=== PATIENT | male | born 1970 | race Caucasian/White ===

== ENCOUNTER → 2022-06-10 11:16 | Outpatient (BNVA) | payer OTHER, SELFPAY | PROVIDERS: PCP Internal Medicine; Visit Provider Internal Medicine Rheumatology | DX: M25.512 Pain in left shoulder (principal); M25.552 Pain in left hip; M54.50 Low back pain, unspecified; M25.572 Pain in left ankle and joints of left foot; M47.812 Spondylosis without myelopathy or radiculopathy, cervical region; M47.816 Spondylosis without myelopathy or radiculopathy, lumbar region | CPT/HCPCS: 99202 ==

== ENCOUNTER 2023-08-16 10:42 | Outpatient (REF) | payer OTHER, SELFPAY ==
[2023-08-16 10:58] LABS: MANUAL DIFF FLAG NO
[2023-08-16 11:14] LABS: Basophils Percent Auto 0.4 % (0-2); Eosinophils Absolute Auto 0.1 X10*3/uL (0.0-0.4); Eosinophils Percent Auto 0.7 % (0-4); Hematocrit 41.6 % (42.0-52.0); Hemoglobin 14.1 g/dl (14.0-18.0); Imm Gran Abs Auto 0.04 X10*3/uL (0.00-0.03); Imm Gran Pct Auto 0.4 % (0.0-0.4); Lymphocytes Absolute Auto 3.1 X10*3/uL (1.2-4.9); Lymphocytes Percent Auto 33.2 % (20-40); Mean Corpuscular HGB Conc 33.9 g/dl (31.0-36.0); Mean Corpuscular Hemoglobin 31.1 pg (27.0-33.0); Mean Corpuscular Volume 91.6 fL (80.0-98.0); Mean Platelet Volume 9.6 fL (9.4-12.4); Monocytes Absolute Auto 0.8 X10*3/uL (0.1-1.2); Monocytes Percent Auto 8.2 % (2-11); Neutrophils Absolute Auto 5.3 x10*3/uL (2.0-8.3); Neutrophils Percent Auto 57.1 % (45-73); Platelet Count 243 X10*3/uL (160-400); Red Blood Count 4.54 X10*6/uL (4.60-5.80); Red Cell Distribution Width 13.4 % (11.0-16.0); White Blood Count 9.2 X10*3/uL (4.8-10.8)
[2023-08-16 11:49] LABS: Alanine Aminotransferase 15 U/L (0-40); Albumin Level 4.2 g/dL (3.5-5.0); Alkaline Phosphatase 63 U/L (39-117); Anion Gap 11 (12-20); Aspartate Amino Transferase 16 U/L (5-37); Bilirubin Total 0.4 mg/dL (0.0-1.0); Blood Urea Nitrogen 14 mg/dL (9-16); C Reactive Protein 0.59 mg/dL (< or = 0.50); Calcium 9.1 mg/dL (8.4-10.2); Carbon Dioxide 26 mmol/L (22-29); Chloride 107 mmol/L (96-108); Estimated Glomerular Filt Rate > 60; Glucose Random 111 mg/dL (60-115); Potassium 3.8 mmol/L (3.3-5.1); Sodium 140 mmol/L (135-145); Total Protein 7.2 g/dL (6.5-8.0)
[2023-08-16 11:58] LABS: Erythrocyte Sedimentation Rate 5 MM/HR (0-15)
== END 2023-08-16 10:43 | disposition home or self-care (01) ==
LOC: HO.LAB 10:42
PROVIDERS: PCP Internal Medicine; Visit Provider Nurse Practitioner Family
DX: M47.816 Spondylosis without myelopathy or radiculopathy, lumbar region (principal); Z79.1 Long term (current) use of non-steroidal anti-inflammatories (NSAID)
CPT/HCPCS: 36415; 80053; 85025; 85652; 86140

== ENCOUNTER 2023-08-17 08:56 | Outpatient (AMB) | payer OTHER, SELFPAY ==
--- NOTE | 2023-08-17 09:00 | MHC.OFFVIS ---
Vital Signs 08/17/23 09:02 Height 5 ft 3 in Weight 160 lb BMI 28.3 BP 94/60 Blood Pressure Location Rt brachial Position Sitting Pulse 83 Pulse Source Pulse Oximeter Pulse Oximetry (%) 98 Oxygen Delivery Method Room Air Intake Visit Reasons: OA Intake Note: Patient last seen 06/10/[address] Ordonez, presents today for follow up and test results. Snack Stewardess Required: Yes Snack Stewardess Language: Blast Furnace Operator Name: Deja [id number] Information Interpreted: clinical only Accompanied by: Self / Same As Patient Allergies No Known Allergies Allergy (Unverified 08/17/23 09:01) HPI Comments Details: Mr. Dumont 53yoM her for follow-up of Osteroathritis of multiple joints. Hnormally takes Ibuprofen 800 mg PRN but has not received it recently at the pharmacy due to provider change. He says Ibuprofen is usually helpful with most of his joints. He is currently following with Ortho for left shoulder; has Appt August 23 to discuss further treatment options. He recently did an Xray of the left shoulder in June. 06/10/2022 Dr. Ordonez: The patient presents for evaluation of left shoulder, left hip, and lower back pains. Our medical support assistant Kaitlynn helps with the translation. He reports about 3 years of pain in the left buttock and lateral hip. This is sometimes accompanied by lower back pain. He does not recall any specific injury but does work in a factory doing fairly physical labor. He was taking some ibuprofen 800 mg once a day or so that was helpful but he ran out of it. Now he takes [id number]-[id number] ibuprofen 200 mg. He has been receiving physical therapy for the back but does not think he has been improving. About a year and half ago the left shoulder became painful. This is pain over the top of the shoulder that radiates distally into the deltoid. It is worse with lying on the shoulder at night. He does not recall any particular injury to the shoulder. He claims to have received some instruction on physical therapy exercises for the shoulder but they have not been all that helpful. There is no swelling of the shoulder. He does not recall any discrete injury to that area. About 3 years ago he fell and twisted his left ankle. It still is painful at times. [facility] Medical History (Updated 08/17/23 @ 09:16 by Elena Laura, ASSISTANT FINANCE MANAGER-BC) termite treater current use of non-steroidal anti-inflammatories (NSAID) PPD positive Fatigue Chronic back pain Social History Household Members: Spouse Alcohol intake: current Patient Tobacco Use Status: Current everyday Tobacco user Cigarette Packs Per Day: 10 Substance Use Type: Marijuana Current occupational status: employed Current occupation: assembly Review of Systems Const All systems reviewed & are unremarkable except as noted in HPI and below Physical Exam Vital Signs: Last Vital Signs Pulse 83 08/17/23 09:02 BP 94/60 08/17/23 09:02 Pulse Ox 98 08/17/23 09:02 Oxygen Delivery Method Room Air 08/17/23 09:02 BMI result Body Mass Index 28.3 APPEARANCE: Patient in no acute distress EYES no redness, pupils equal and reactive to light, eyelids normal EARS: External ear normal, canal clear and tympanic membrane normal. NOSE/SINUS: Airflow through both nares, no nasal discharge, no bleeding THROAT: Oral mucosa moist, no ulcerations NECK: No thyromegaly or masses, no adenopathy, trachea midline. HEART: Regulrar rhythm, S1-S2 heard, no murmurs, rubs or gallops. LUNG: Clear to percussion and auscultation ABD: Normal bowel sounds, no organomegaly, masses or tenderness. EXTREMITIES: No edema, no calf tenderness, normal peripheral pulses. NEURO: Oriented and alert x3. No focal weakness. Reflexes symmetric. Gait normal. SKIN: Some dryness of the skin in the posterior cervical region. No obvious inflammatory or neoplastic lesions. No objective signs of Raynaud's disease. JOINT EXAM:.?? Cervical Spine:.? Full range of motion with mild discomfort at the extremes. No tenderness. Thoracic Spine:.? No scoliosis.? No tenderness on palpation. Lumbar Spine:.? Alignment normal.? Full range of motion without pain, no tenderness. Chest Wall:.? No tenderness, swelling, increased warmth or erythema. Hands: Right: Mild to moderate bony enlargement and slight tenderness at the base of the thumb. There is a flexion deformity at the right 5th PIP with some minimal bony enlargement. He notes that the flexion deformity developed after he injured a tendon in the palm of the hand many years ago. He has no pain in this region. No tenderness. No thenar atrophy or sensory loss. Left: Minimal bony enlargement without tenderness at the base of the thumb. Other joints have? Normal pain-free range of motion without tenderness, swelling, increased warmth or erythema. There is no sensory loss or thenar atrophy. Wrists: Right: Mild discomfort with flexion extension at 80 degrees with some dorsal tenderness but no swelling. Left:? Normal pain-free range of motion without tenderness, swelling, increased warmth or erythema. Elbows: Normal pain-free range of motion without tenderness, swelling, increased warmth or erythema. Shoulders: Left: Mild pain with abduction at 75 degrees abduction is limited about 110 degrees. There is mild anterior and subacromial tenderness without adenopathy. There is no swelling or abductor weakness. Right:? Full range of motion without pain. No tenderness, weakness, swelling, increased warmth or erythema. Hips: Left: Mild buttock and lumbar pain with extremes of internal external rotation. No groin pain with motion. No inguinal tenderness or mass. Right:? Full range of motion without pain. Hip bursa:.? Mild left trochanteric tenderness. Knees:.?? Normal pain-free range of motion with mild patellofemoral crepitus but no effusion, tenderness, swelling, increased warmth or erythema.? Ankles: Left: Slight pain with extremes of inversion and eversion with some minimal lateral tenderness but no swelling. No redness or warmth. Right:? Normal pain-free range of motion without tenderness, swelling, increased warmth or erythema. Feet:? Normal pain-free range of motion without tenderness, swelling, increased warmth or erythema. Tender points:.? No tenderness to digital palpation at the occiput, trapezius, second rib, lateral epicondyle, knees, greater trochanter and gluteal area bilaterally. ? Results Reviewed Results Reviewed: Laboratory Tests 08/16/23 10:56 WBC 9.2 RBC 4.54 L Hgb 14.1 Hct 41.6 L ESR 5 Creatinine 0.80 AST 16 ALT 15 C-Reactive Protein 0.59 H Assessment & Plan Assessment & Plan (1) Shoulder pain, left: Code(s): M25.512 - Pain in left shoulder Category: Medical Qualifiers: Chronicity: chronic Qualified Code(s): M25.512 - Pain in left shoulder; G89.29 - Other chronic pain (2) Low back pain: Code(s): M54.50 - Low back pain, unspecified Category: Medical Qualifiers: Chronicity: chronic Back pain laterality: bilateral Sciatica presence: without sciatica Qualified Code(s): M54.50 - Low back pain, unspecified; G89.29 - Other chronic pain (3) Cervical osteoarthritis: Code(s): M47.812 - Spondylosis without myelopathy or radiculopathy, cervical region Category: Medical Qualifiers: Spinal osteoarthritis complication: unspecified spinal osteoarthritis Qualified Code(s): M47.812 - Spondylosis without myelopathy or radiculopathy, cervical region (4) Osteoarthritis of lumbar spine: Code(s): M47.816 - Spondylosis without myelopathy or radiculopathy, lumbar region Category: Medical Qualifiers: Spinal osteoarthritis complication: unspecified spinal osteoarthritis Qualified Code(s): M47.816 - Spondylosis without myelopathy or radiculopathy, lumbar region (5) [facility] current use of non-steroidal anti-inflammatories (NSAID): Code(s): Z79.1 - [facility] (current) use of non-steroidal anti-inflammatories (NSAID) Category: Medical Plan #OA Multiple joints and Left Shoulder Tendinitis: The left shoulder has some impingement features consistent with a rotator cuff tendinitis. He has documented cervical and lumbar osteoarthritis. The lumbar OA is likely referring pain to the left buttock and hip region. He has some mild osteoarthritis in the hands particularly at the base of the thumbs. We might consider a corticosteroid injection in the left subacromial space for rotator cuff tendinitis but will defer to ortho since he is currently following with them. He seems to tolerate the 800 mg ibuprofen and found it helpful so I will refill. That could be continued by his primary care team if needed. I have ordered labs to be done 1 week before next visit Today the review of his Char record, history taking, and exam took 30 minutes. F/u 1 year Orders: Orders Complete Blood Count Auto Diff 6 Months G89.29 - Other chronic pain, M25.512 - Pain in left shoulder, M25.552 - Pain in left hip, M54.50 - Low back pain, unspecified, Z79.1 - [facility] (current) use of non-steroidal anti-inflammatories (NSAID) Comprehensive Met. Panel 6 Months G89.29 - Other chronic pain, M25.512 - Pain in left shoulder, M25.552 - Pain in left hip, M54.50 - Low back pain, unspecified, Z79.1 - termite treater (current) use of non-steroidal anti-inflammatories (NSAID) C Reactive Protein 6 Months G89.29 - Other chronic pain, M25.512 - Pain in left shoulder, M25.552 - Pain in left hip, M54.50 - Low back pain, unspecified, Z79.1 - [facility] (current) use of non-steroidal anti-inflammatories (NSAID) Uric Acid Today G89.29 - Other chronic pain, M25.512 - Pain in left shoulder, M25.552 - Pain in left hip, M54.50 - Low back pain, unspecified, Z79.1 - [facility] (current) use of non-steroidal anti-inflammatories (NSAID) Immunoglobulins,IgG IgA IgM Today G89. - Other chronic pain, M25.512 - Pain in left shoulder, M25.552 - Pain in left hip, M54.50 - Low back pain, unspecified, Z79.1 - [facility] (current) use of non-steroidal anti-inflammatories (NSAID) Protein Electrophoresis, Serum Today G89. - Other chronic pain, M25.512 - Pain in left shoulder, M25.552 - Pain in left hip, M54.50 - Low back pain, unspecified, Z79.1 - termite treater (current) use of non-steroidal anti-inflammatories (NSAID) Erythrocyte Sedimentation Rate 6 Months G89.29 - Other chronic pain, M25.512 - Pain in left shoulder, M25.552 - Pain in left hip, M54.50 - Low back pain, unspecified, Z79.1 - termite treater (current) use of non-steroidal anti-inflammatories (NSAID) Creatine Kinase Total Today G89.29 - Other chronic pain, M25.512 - Pain in left shoulder, M25.552 - Pain in left hip, M54.50 - Low back pain, unspecified, Z79.1 - [facility] (current) use of non-steroidal anti-inflammatories (NSAID) Immunofixation Pnl, Serum Today G89. - Other chronic pain, M25.512 - Pain in left shoulder, M25.552 - Pain in left hip, M54.50 - Low back pain, unspecified, Z79.1 - termite treater (current) use of non-steroidal anti-inflammatories (NSAID) Medications: Refilled ibuprofen 800 mg PO Q8H PRN 100 tabs 4RF pain M25.512 - Pain in left shoulder
[2023-08-17 09:02] VITALS: BP 94/60; PULSE 83; O2SAT 98; BMI 28.3
== END 2023-08-17 09:26 | disposition home or self-care (01) ==
LOC: HO.RHE 08:56
PROVIDERS: PCP Internal Medicine; Visit Provider Nurse Practitioner Family
DX: M25.512 Pain in left shoulder (principal); G89.29 Other chronic pain; M54.50 Low back pain, unspecified; M47.812 Spondylosis without myelopathy or radiculopathy, cervical region; M47.816 Spondylosis without myelopathy or radiculopathy, lumbar region; Z79.1 Long term (current) use of non-steroidal anti-inflammatories (NSAID)
CPT/HCPCS: 99213

== ENCOUNTER → 2023-08-17 08:56 | Outpatient (BNVA) | payer OTHER, SELFPAY | PROVIDERS: PCP Internal Medicine; Visit Provider Nurse Practitioner Family | DX: M25.512 Pain in left shoulder (principal); M54.50 Low back pain, unspecified; M47.812 Spondylosis without myelopathy or radiculopathy, cervical region; M47.816 Spondylosis without myelopathy or radiculopathy, lumbar region; G89.29 Other chronic pain; Z79.1 Long term (current) use of non-steroidal anti-inflammatories (NSAID) | CPT/HCPCS: 99212 ==

== ENCOUNTER 2024-08-16 09:13 | Outpatient (AMB) | payer OTHER, SELFPAY ==
--- NOTE | 2024-08-16 09:14 | MHC.OFFVIS ---
Vital Signs 08/16/24 09:19 Height 5 ft 3 in Weight 149 lb 14.629 oz BMI 26.6 BP 115/62 Blood Pressure Location Lt brachial Position Sitting Pulse 85 Pulse Source Pulse Oximeter Pulse Oximetry (%) 97 Oxygen Delivery Method Room Air Intake Visit Reasons: OA multiple joints/labs Intake Note: Patient presents for OA multiple joints/labs follow up. Animal Laboratory Technician Required: Yes Animal Laboratory Technician Language: Manager Internal Services: Animal Laboratory Technician Present Animal Laboratory Technician Name: Souleymane Moreno Information Interpreted: non-clinical & clinical Allergies No Known Allergies Allergy (Verified 08/16/24 09:18) Medication List - Last Reconciled 08/16/24 by Hue Patrick MD ibuprofen 800 mg PO Q8H PRN HPI Comments Details: Patient is a 54-year-old male with polyarticular osteoarthritis here today for follow up Interval History: Patient last seen 08/17/2023 with Elena Sanchez. At that time he was following up for his polyarticular osteoarthritis. Takes ibuprofen 800 mg p.r.n. which is helpful. Unfortunately currently does not have insurance and currently takes over the counter ibuprofen Continues to complain of polyarticular joint pain. In particular the left shoulder. Rheumatologic History: Initial history from Dr. Ordonez 05/2022: The patient presents for evaluation of left shoulder, left hip, and lower back pains. Our medical illustrator Kaitlynn helps with the translation. He reports about 3 years of pain in the left buttock and lateral hip. This is sometimes accompanied by lower back pain. He does not recall any specific injury but does work in a factory doing fairly physical labor. He was taking some ibuprofen 800 mg once a day or so that was helpful but he ran out of it. Now he takes [id number]-[id number] ibuprofen 200 mg. He has been receiving physical therapy for the back but does not think he has been improving. About a year and half ago the left shoulder became painful. This is pain over the top of the shoulder that radiates distally into the deltoid. It is worse with lying on the shoulder at night. He does not recall any particular injury to the shoulder. He claims to have received some instruction on physical therapy exercises for the shoulder but they have not been all that helpful. There is no swelling of the shoulder. He does not recall any discrete injury to that area. About 3 years ago he fell and twisted his left ankle. It still is painful at times. 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 non-steroidal anti-inflammatories (NSAID) PPD positive Fatigue Chronic back pain Social History Household Members: Spouse Alcohol intake: current Patient Tobacco Use Status: Current everyday Tobacco user Cigarette Packs Per Day: 10 Substance Use Type: Marijuana Current occupational status: employed Current occupation: assembly Review of Systems Const Details: Review of Systems Constitutional: Denies fever, chills, weight loss ENT: Denies vision changes, eye pain or eye redness, dental caries, dry mouth GI: Denies nausea, vomiting, diarrhea, abdominal pain, change in BM Pulm: Denies SOB, DHALIWAL, hemoptysis, wheezing Cards: Denies chest pain, palpitations Skin: Denies Raynaud's, rash, nail changes, photosensitivity, EPIC RADIANT ANALYST: Denies headaches, weakness, paresthesias, recurrent falls MSK: as per HPI All other systems reviewed and are unremarkable except noted above Physical Exam Vital Signs: Last Vital Signs Pulse 85 08/16/24 09:19 BP 115/62 08/16/24 09:19 Pulse Ox 97 08/16/24 09:19 Oxygen Delivery Method Room Air 08/16/24 09:19 BMI result Body Mass Index 26.6 Vital signs reviewed Physical Examination CONSTITUITIONAL Patient alert and cooperative. Well appearing and in no apparent painful distress HEENT Conjunctiva and sclera clear. ?Pupils equal round and reactive to light. ?No lymphadenopathy. ? CHEST/RESPIRATORY SYSTEM Normal respiratory effort and able to speak in complete sentences. ?Clear to auscultation bilaterally. ?No crackles, rales, rhonchi, wheezes heard. CARDIAC SYSTEM Regular rate and rhythm. ?S1 and S2 heard no murmurs. ?Radial pulses intact bilaterally MSK Hands: ?Able to make a fist. No synovitis noted to the MCPs, PIPs or DIPs. ?No tenderness to palpation of these joints. Herbeden's nodes Wrists: ?Full range of motion at the wrists without pain. ?No tenderness to palpation or synovitis noted to the wrists. Elbows: Full range of motion without pain. No tenderness, weakness, swelling, increased warmth or erythema. Shoulders: Full range of active range of motion bilaterally. Pain with active range of motion of the left shoulder with positive Feliz Jean Claude maneuver up Knees: ?Full range of motion. ?No tenderness, swelling, increased warmth or erythema.?No effusion or crepitations Ankles: Full range of motion. ?No tenderness, swelling, increased warmth or erythema.? Feet: ?Negative squeeze test. ?No tenderness to palpation or swelling of the MTPs. Tender points:?No tenderness to palpation of the bilateral trapezius, supraspinatus, greater trochanters, anterior costochondral junctions, bilateral gluteal areas, bilateral suboccipital muscle insertions SKIN Skin intact without rashes. Results Reviewed Results Reviewed: Laboratory Tests 08/16/23 10:56 WBC 9.2 RBC 4.54 L Hgb 14.1 Hct 41.6 L Plt Count 243 ESR 5 Sodium 140 Potassium 3.8 Chloride 107 Carbon Dioxide 26 BUN 14 Creatinine 0.80 AST 16 ALT 15 Alkaline Phosphatase 63 C-Reactive Protein 0.59 H Assessment & Plan Assessment & Plan (1) Polyarticular osteoarthritis: Code(s): M15.9 - Polyosteoarthritis, unspecified Category: Medical Plan: #Polyarticular OA Patient is a 54-year-old male with polyarticular osteoarthritis here today for follow up. Currently managing his osteoarthritis with p.r.n. ibuprofen. Was without insurance for a while and so was taking lwer-rjf-eaejyrh ibuprofen but is requesting 800 mg ibuprofen today. Offered left shoulder injection but patient said he would like to think about it. 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): Code(s): Z79.1 - petroleum terminal plant operator (current) use of non-steroidal anti-inflammatories (NSAID) Category: Medical Plan: #Long-term Use of NSAIDs Discussed with patient the benefits and risk of NSAIDs for managing the rheumatic condition Benefits include: - Reduced the pain, improved mobility, and increased participation in activities Risks include: - GI upset, potential also worsening or formation (especially in patients > 65 years old) Recommended using proton pump inhibitors (PPIs) for the duration of NSAID use to reduce the risk of gastric ulcers Plan I spent 22 minutes reviewing the record and labs, taking a history, examining the patient, discussing the treatment plan, ordering diagnostic work up and documenting in the medical record Orders: Orders Complete Blood Count Auto Diff Today M15.9 - Polyosteoarthritis, unspecified, Z79.1 - retirement (current) use of non-steroidal anti-inflammatories (NSAID) Comprehensive Met. Panel Today M15.9 - Polyosteoarthritis, unspecified, Z79.1 - retirement (current) use of non-steroidal anti-inflammatories (NSAID) Medications: Changed From ibuprofen 800 mg PO Q8H PRN 100 tabs 4RF pain M25.512 - Pain in left shoulder To ibuprofen 800 mg PO Q8H 90 days PRN 270 tabs 2RF pain M25.512 - Pain in left shoulder Coding Level of Care Code Est Pt Level 3 (22289) Diagnoses Polyarticular osteoarthritis M15.9 retirement current use of non-steroidal anti-inflammatories (NSAID) Z79.1
[2024-08-16 09:19] VITALS: BP 115/62; PULSE 85; O2SAT 97; BMI 26.6
--- OUTSIDE RECORDS SUMMARY | 2024-08-16 10:04 | XMS_ITS ---
Author Organization [facility] Address [address], [place] [id number] Care Team Providers Care Sales Agent Casualty Insurance Name Role Phone No, PCP Primary Care Provider Jessie Dove Unavailable [phone] REASON FOR VISIT Call [employer] to update no Income Social History Sex Assigned At : Social History Observation Description Sex Assigned At Male Encounters Encounter Location Date Provider Diagnosis [facility] [address] [place] [id number] 07/20/2024 Jessie Peñaloza Plan Of Treatment No Information Progress Notes * Spencer QUANOB:[birth year] (54 yo M)Acc No.[id number]:07/20/2024 Case Management Patient:?Joel QUAN Provider:Amrik Peñaloza :1970???Age:54 Y???Sex:Male Sudhir e:07/20/2024 Address:[address] [place] [id number] Pcp:PCP No Subjective: * Chief Complaints: * ???1. Call Certify to up date no Income. * HPI: ???Social Service:?Action Taken?[employer]? Called [employer] with client and updated MH that client no longer has any Income at this moment. Client was approved for [employer]. 3. gd2.? * Medical History:? Objective: * Vitals:? Assessment: Plan: * Treatment: * Images: Billing Information: * Visit Code:? * Procedure Codes:? Care Plan Details* * Sign off status: Completed true * Provider:Amrik Peñaloza Date:?07/20/2024 Generated for Karen adame/Brian/Humberto on:?08/16/2024 10:04 AM EDT History and Physical Notes * HPI (History of Present Illness) Category Sub-Category Detail Notes Social Service Action Taken [facility] : Called [facility] with client and updated MH that client no longer has any Income at this moment. Client was approved for [facility]. 3. gd2
--- OUTSIDE RECORDS SUMMARY | 2024-08-16 10:04 | XMS_ITS | Clinical Summary ---
Author Organization [facility] it Address [address] [place] [address] Care Team Providers Care Nailhead Operator Name Role Phone Shira Moralez MD Primary Care Provider [phone] Immunizations Name Administration Dates Next Due Moderna SARS-CoV-2 COVID-19, mRNA, LNP-S, preservative free 11/18/2021,04/23/2021 Surgical History Surgery Date Site/Laterality Comments OTHER SURGICAL HISTORY PROCEDURE: DENIES PREVIOUS SURGERY Family History Medical History Relation Name Comments Lung cancer Father Hypertension Mother Relation Name Status Comments Brother Alive 9,healthy Father cancer lungs Mother Alive Sister Alive 3,not sure Social History Tobacco Use Types Packs/Day Years Used Date Smoking Tobacco: Every Day Cigarettes Smokeless Tobacco: Never Alcohol Use Standard Drinks/Week Comments Yes 0 (1 standard drink = 0.6 oz pur e alcohol) Sex and Gender Information Value Date Recorded Sex Assigned at Not on file Legal Sex Male 1:02 PM EST Gender Identity Not on file Sexual Orientation Not on file Obstetrics History Last Filed Vital Signs Vital Sign Reading Time Taken Comments Blood Pressure 125/65 08/01/2021 10:01 AM EDT au to Pulse 77 08/01/2021 10:01 AM EDT Temperature - - Respiratory Rate - - Oxygen Saturation - - Inhaled Oxygen Concentration - - Weight 71.7 kg (158 lb) 07/06/2023 8:49 AM EDT Height 160 cm (5' 3 ) 07/06/2023 8:49 AM EDT Body Mass Index 27.99 07/06/2023 8:49 AM EDT Plan of Treatment Health Maintenance Due Date Last Done Comments Hepatitis B Vaccines (1 of 3 - 19+ 3-dose series) 1989 Pneumococcal Vaccine: 50+ Years (1 of 2 - PCV) 1989 Pneumococcal Vaccine: Pediatrics (0 to 5 Years) and At-Risk Patients (6 to 64 Years) (1 of 2 - PCV) 1989 Zoster Vaccines (1 of 2) 2020 02/11/2007 Cholesterol Screening (Lipid Panel) 04/05/2022 Colorectal Cancer Screening: Colonoscopy 04/05/2022 Depression Screening 04/05/2022 HIV Screening 04/05/2022 Hepatitis C Screening 04/05/2022 Social Influencers of Health Screening 04/05/2022 COVID-19 Vaccine ( season) 2023 11/18/2021, 04/23/2021, 07/09/2020, Additional history exists Influenza Vaccine (Season Ended) 2024 02/15/2017 DTaP,Tdap,and Td Vaccines (2 - Td or Tdap) 02/15/2027 02/15/2017 MMR Vaccines Aged Out 02/11/2006 No longer eligi ble based on patient's age to complete this topic Varicella Vaccines Aged Out 02/11/2007 No longer eligible based on patient's age to complete this topic HIB Vaccines Aged Out No longer eligi ble based on patient's age to complete this topic HPV Vaccines Aged Out No longer eligi ble based on patient's age to complete this topic Hepatitis A Vaccines Aged Out No long er eligible based on patient's age to complete this topic IPV Vaccines Aged Out No longer eligi ble based on patient's age to complete this topic Meningococcal ACWY Vaccine Aged Out N o longer eligible based on patient's age to complete this topic Meningococcal B Vaccine Aged Out No l onger eligible based on patient's age to complete this topic RSV Immunization Patients Under 20 months Aged Out No longer eligible based on patient's age to complete this topic Care Teams Nailhead Operator Relationship Specialty Start Date End Date Shira Moralez MD [address] [place] [address] [place] [address] PCP - General 07/21/21
--- OUTSIDE RECORDS SUMMARY | 2024-08-16 10:04 | XMS_ITS | Clinical Summary ---
Author Organization [facility] Address [address] [place] [address] Care Team Providers Care Acreage Reporter Name Role Phone Ros Bennett Primary Care Provider [phone] Source Comments PLEASE NOTE, if this patient is a minor, it may be UNLAWFUL to discuss sensitive information that is contained in these records (such as FAMILY PLANNING, MENTAL HEALTH or SUBSTANCE ABUSE) with the minor patient's parent or other person without the patient's specific authorization.[facility] Allergies No known active allergies Medications varenicline (CHANTIX) 0.5 mg tabletIndications :Encounter for tobacco use cessation counseling Take 1 Tablet by mouth once daily for 3 days, THEN 1 Tablet 2 (two) times daily for 3 days, THEN 2 Tablets 2 (two) times daily for 84 days. Days 1 to 3: 0.5 mg once daily. Days 4 to 7: 0.5 mg twice daily. Maintenance (day 8 and later): 1 mg twice daily; Duration: Continue maintenance dose for at least 11 weeks (for a total of at least 12 weeks of treatment).. 345 Tablet 2 Active clotrimazole (LOTRIMIN) 1 % creamIndications: Tinea pedis of both feet Apply topically 2 (two) times daily 15 g 2 2 Active nicotine, polacrilex, (NICORETTE) 4 mg gumIndications:En counter for tobacco use cessation counseling Take 1 Each by mouth as needed for smoking cessation Nicotine gum Chew at least one piece of gum every one to two hours while awake and also whenever there is an urge to smoke. May use up to 24 pieces of gum per day for the first six weeks of treatment. Proper chewing of gum is important for optimal results. Chew and park is recommended: chew the gum until the nicotine taste appears, then park the gum against the buccal mucosa until the taste disappears, then chew a few more times to release more nicotine. Repeat this for 30 minutes, then discard the gum (because all nicotine in the gum has been released) 110 Each 1 2 Active ibuprofen 600 mg tabletIndications :Chronic apical periodontitis Take 1 Tablet by mouth 4 (four) times daily as needed for mild pain 20 Tablet 2 Active Active Problems Problem Noted Date Diagnosed Date Neuropathy 11/18/2021 Onychomycosis 11/18/2021 Low back pain radiating to left lower extremity 08/18/2021 Cervical pain (neck) 08/18/2021 Pain in left arm 08/18/2021 At risk for sexually transmi tted disease due to unprotected sex 08/18/2021 Absence of bladder continence 08/18/2021 Inability to maintain erection 08/18/2021 Dependence on nicotine from cigarettes 2 Immunizations Immunization Administration Dates Next Due Flu, Preservative Free 02/15/2023 MMR (MMR II/Priorix) 02/11/2006 Moderna COVID-19 Vaccine, re d cap blue label, 12+ Primary Series 11/18/2021,04/23/2021 PNEUMOCOCCAL CONJUGATE PCV 13 11/18/2021 PNEUMOCOCCAL CONJUGATE PCV 20 (Prevnar) 02/16/20 23 TDAP 02/15/2017 Varicella, Live Vaccine 02/11/2007 ZOSTER VACCINE, RECOMBINANT (SHINGRIX) 3 Social History Tobacco Use Types Packs/Day Years Used Date Smoking Tobacco: Every Day Cigarettes 0.5 30 Smokeless Tobacco: Never Tobacco Cessation:Counseling Given: Yes Comments:10 cigs a day Alcohol Use Standard Drinks/Week Comments Yes 15 (1 standard drink = 0.6 oz pu re alcohol) every 8 days Social Connections Answer Date Recorded Connectedness 0 02/15/2023 Financial Resource Strain Answer Date R ecorded Financial Resource Strain 0 2022 Stress Answer Date Recorded Stress 0 02/15/2023 Physical Activity Answer Date Recorded Physical Activity 0 04/23/2021 Food Insecurity Answer Date Recorded Food 0 02/15/2023 Transportation Needs Answer Date Record ed Transportation 0 02/15/2023 Housing Stability Answer Date Recorded Housing 0 02/15/2023 Safety and Environment Answer Date Rey rded Safety 0 02/15/2023 Utilities Answer Date Recorded Utilities 0 02/15/2023 Employment Answer Date Recorded Employment 0 04/23/2021 Sex and Gender Information Value Date Recorded Sex Assigned at Male 08/18/2021 11:59 AM PDT Legal Sex Male 11:36 AM PDT Gender Identity Male 08/18/2021 11:59 AM PDT Sexual Orientation Straight 08/18/2021 11 :59 AM PDT Last Filed Vital Signs Vital Sign Reading Time Taken Comments Blood Pressure 137/89 05/13/2023 9:49 AM EST Pulse 79 05/13/2023 9:49 AM EST Temperature 36.9 ??C (98.4 ??F) 02/15/2023 9:36 AM ED T Respiratory Rate 17 02/15/2023 9:36 AM EDT Oxygen Saturation 92% 02/15/2023 9:36 AM EDT Inhaled Oxygen Concentration - - Weight 71.2 kg (157 lb) 02/15/2023 9:36 AM EDT Height 160 cm (5' 3 ) 02/15/2023 9:36 AM EDT Body Mass Index 27.81 02/15/2023 9:36 AM EDT Plan of Treatment Health Maintenance Due Date Last Done Comments Anxiety Screening 1970 STI Counseling 1970 Imm-Hepatitis B (1 of 3 - 19 + 3-dose series) 1989 CT Colonography 2015 Colonoscopy 2015 Colorectal Cancer Screening 2015 FIT/gFOBT 2015 Fecal DNA 2015 Flexible Sigmoidoscopy 2015 Tobacco Screening 08/18/2022 08/18/2021 Imm-Zoster, Recombinant (2 of 2) 04/12/2023 02/16/20 23 [id number] ( season) 2023 11/18/2021, 04/23/2021, 07/09/2020, Additional history exists Imm-Influenza (#1) 2023 02/15/2023 Tobacco Cessation Counseling (#1) 02/15/202408/18/ 022 Annual Preventive Care Visit 02/16/2024 02/15/2023 Alcohol and Drug Screen 04/26/2024 02/16/20, 08/18/2021, 12/10/2015 Depression Annual Screen 04/26/2024 02/15/2023, 11/24 Hypertension Screening (#1) 05/12/2024 Dental BW 05/15/2024 05/13/2023, 09/25, 11/27/2021 Dental Examination 05/15/2024 05/13/2023, 10/16/2022 Dental Perio Charting 05/15/2024 05/13/2023, 023 Dental Prophy 05/15/2024 05/13/2023, 10/16/2022 Diabetes Screening 08/18/2024 08/18/2021, 08/18/2021 Lipid Screening 08/18/2026 08/18/2021 Dental FMX/Pano 12/28/2026 12/26/2021, 11/27/2021 Imm-DTaP/Tdap/Td (2 - Td or Tdap) 02/15/2027 017 HIV Screening Completed 08/18/2021 Hepatitis C Screening Completed 08/18/2021 Imm-Pneumococcal Completed 02/15/2023, 11/18/2021 Procedures Procedure Name Priority Date/Time Associated Diagnosis Comments COMP PERIODONTAL EVALUATION - NEW/EST PATIENT Routine 05/13/2023 9:40 AM EST Encounter for dental examination BITEWINGS - FOUR RADIOGRAPHIC IMAGES Routine 05/13/2023 9:40 AM EST Encounter for dental examination PROPHYLAXIS - ADULT Routine 05/13/2023 9 :40 AM EST Encounter for dental examination PERIODIC ORAL EVALUATION ESTABLISHED PATIENT Routine 05/13/2023 9:40 AM EST Encounter for dental examination PANORAMIC RADIOGRAPHIC IMAGE Routine 12/26/2021 11:00 AM EDT Chronic apical periodontitis HIV 1/2 AG & AB W/RFLX (4TH GEN) Routine 08/18/2021 3:55 PM EDT At risk for sexually transmitted disease due to unprotected sex ACUTE HEPATITIS PANEL W/RFLX Routine 08/18/2021 3:55 PM EDT At risk for sexually transmitted disease due to unprotected sex COMPREHENSIVE METABOLIC PANEL Routine 08/18/2021 3:55 PM EDT Encounter to establish care with new doctor LIPID PANEL Routine 08/18/2021 3:55 PM EDT Encounter to establish care with new doctor from Last 3 Months or Most Recently Relevant to Health Maintenance Results * HIV 1/2 AG & AB W/RFLX (4TH GEN) (08/18/2021 3:55 PM EDT) HIV AG/AB, 4TH GEN NON-REAC TIVE NON-REAC TIVE [facility] Comment: HIV-1 antigen and HIV-1/HIV-2 antibodies were not detected. There is no laboratory evidence of HIV infection. PLEASE NOTE: This information has been disclosed to you from records whose confidentiality may be protected by state law. ??If your state requires such protection, then the state law prohibits you from making any further disclosure of the information without the specific written consent of the person to whom it pertains, or as otherwise permitted by law. A general authorization for the release of medical or other information is NOT sufficient for this purpose. ?? For additional information please refer to http://education.FoxyP2/faq/PXM807 (This link is being provided for informational/ educational purposes only.) The performance of this assay has not been clinically validated in patients less than 2 years old. Blood Blood / Unknown 08/18/2021 3 :55 PM EDT 08/18/2021 3:56 PM EDT [facility] - BLOOD DRAW Final Resu lt [facility] [address] [address], [facility] [address] [address] * ACUTE HEPATITIS PANEL W/RFLX (08/18/2021 3:55 PM EDT) HEPATITIS A IGM ANTIBODY NON-REACT JOHNNA NON-REACT JOHNNA [facility] COMMENT [facility] HEPATITIS B SURFACE ANTIGEN NON-REACT JOHNNA NON-REACT JOHNNA [facility] HEPATITIS B CORE IGM ANTIBODY NON-REACT JOHNNA NON-REACT JOHNNA [facility] HEPATITIS C ANTIBODY NON-REACT JOHNNA NON-REACT JOHNNA [facility] SIGNAL TO CUT-OFF 0.03 <1.00 [facility] Comment: HCV antibody was non-reactive. There is no laboratory evidence of HCV infection. In most cases, no further action is required. However, if recent HCV exposure is suspected, a test for HCV RNA (test code 20702) is suggested. For additional information please refer to http://Mind[employer] Studio.FoxyP2/faq/WAP09s7 (This link is being provided for informational/ educational purposes only.) Blood Blood / Unknown 08/18/2021 3 :55 PM EDT 08/18/2021 3:56 PM EDT Narrative [facility] - 08/19/2021 5:38 PM EDT For additional information, please refer to http://Mind[employer] Studio.FoxyP2/faq/WQH384 (This link is being provided for informational/ educational purposes only.) [facility] - BLOOD DRAW Final Resu lt [facility] [address] [address], [facility] [address] [place] [address],[place] [address] * (ABNORMAL) LIPID PANEL (08/18/2021 3:55 PM EDT) CHOLESTEROL, TOTAL 159 <200 mg/dL [facility] HDL CHOLESTEROL 32(L) > OR = 40 mg/dL [facility] TRIGLYCERIDES 153(H) <150 mg/dL [facility] LDL-CHOLESTEROL 102(H) 99 mg/dL (calc) [facility] Comment: Reference range: <100 Desirable range <100 mg/dL for primary prevention; ?? <70 mg/dL for patients with CHD or diabetic patients with > or = 2 CHD risk factors. LDL-C is now calculated using the Ian calculation, which is a validated novel method providing better accuracy than the Friedewald equation in the estimation of LDL-C. Benito CHAMORRO et al. NATE. 2013;310(19): 0660-5700 (http://education.Ubooly.Vindi/faq/WAR011) CHOL/HDLC RATIO 5.0(H) <5.0 (calc) [facility] NON-HDL CHOLESTEROL 127 <130 mg/dL (calc) [facility] Comment: For patients with diabetes plus 1 major ASCVD risk factor, treating to a non-HDL-C goal of <100 mg/dL (LDL-C of <70 mg/dL) is considered a therapeutic option. Blood Blood / Unknown 08/18/2021 3 :55 PM EDT 08/18/2021 3:56 PM EDT [facility] - BLOOD DRAW Final Resu lt [facility] [address] [place] [address], [facility] [address] [place] [address],[place] [address] * COMPREHENSIVE METABOLIC PANEL (08/18/2021 3:55 PM EDT) GLUCOSE 85 65 - 99 mg/dL [facility] Comment: ?Fasting reference interval UREA NITROGEN (BUN) 23 7 - 25 mg/dL [facility] CREATININE (blood) 0.88 0.70 - 1.33 mg/dL [facility] Comment: For patients >49 years of age, the reference limit for Creatinine is approximately 13% higher for people identified as -[place]. GFR ESTIMATED 99 > OR = 60 mL/min/1 .73m2 [facility] EGFR 115 > OR = 60 mL/min/1 .73m2 [facility] BUN/CREATININE RATIO NOT APPLICABLE 6 - 22 [facility] SODIUM 138 135 - 146 mmol/L [facility] POTASSIUM 4.0 3.5 - 5.3 mmol/L [facility] CHLORIDE 105 98 - 110 mmol/L [facility] CARBON DIOXIDE 24 20 - 32 mmol/L [facility] CALCIUM 9.2 8.6 - 10.3 mg/dL [facility] PROTEIN, TOTAL 7.3 6.1 - 8.1 g/dL [facility] ALBUMIN 4.6 3.6 - 5.1 g/dL [facility] GLOBULIN 2.7 1.9 - 3.7 g/dL (calc) [facility] ALBUMIN/GLOBULIN RATIO 1.7 1.0 - 2.5 (calc) [facility] BILIRUBIN, TOTAL 0.3 0.2 - 1.2 mg/dL [facility] ALKALINE PHOSPHATASE 61 35 - 144 U/L [facility] AST 19 10 - 35 U/L [facility] ALT 16 9 - 46 U/L [facility] Blood Blood / Unknown 08/18/2021 3 :55 PM EDT 08/18/2021 3:56 PM EDT [facility] - BLOOD DRAW Edited Res ult - Final [facility] [address] [address], [facility] [address] [address] from Last 3 Months or Most Recently Relevant to Health Maintenance Insurance [facility] Member Subscriber Plan / Payer (Ef fective 2021-Present) Name:Joel Dumont Relation to Subscriber:Self Name:Joel Dumont Payer ID:[id number] Type:Indemnity Address: [address] [address] [place] MED[place]ID DENT[place] Care Teams Acreage Reporter Relationship Specialty Start Date End Date Ros Bennett PA [address] [place] [address] PCP - General Primary Care 09/03/23
--- OUTSIDE RECORDS SUMMARY | 2024-08-16 10:04 | XMS_ITS | Patient Health Record ---
Author Organization [facility] Address [address] [place], [place] [id number] Care Team Providers Care Rail Transportation Operator Name Role Phone No, PCP Primary Care Provider Jessie Dove Unavailable [phone] Reason For Referral No Information Social History Sex Assigned At : Social History Observation Description Sex Assigned At Male Encounters Encounter Location Date Provider Diagnosis [facility] [address] [place] [address] 07/20/2024 Jessie Peñaloza [facility] [address] [place] [address] 06/29/2024 Jessie Peñaloza Plan Of Treatment No Information Insurance Providers Payer Name Payer Address Payer Phone Subscriber Number Group Number Insured Name Patient Relationship to Insured Coverage Start Date Coverage End Date [place] Medicaid Standard [address] [place] [address] [id number] Joel Law Self - patient is the insured
--- OUTSIDE RECORDS SUMMARY | 2024-08-16 10:04 | XMS_ITS ---
Author Organization [facility] Address [address] [place], [place] [id number] Care Team Providers Care Bar Roller Name Role Phone No, PCP Primary Care Provider Jessie Dove Unavailable [phone] REASON FOR VISIT Apply for [employer] Insurance Social History Sex Assigned At : Social History Observation Description Sex Assigned At Male Encounters Encounter Location Date Provider Diagnosis [facility] [address] [place] [address] 06/29/2024 Jessie Peñaloza Plan Of Treatment No Information Progress Notes * Spencer QUANOB:[birth year] (54 yo M)Acc No.[id number]:06/29/2024 Case Management New Patient:?QUAN, Joel Provider:Amrik Peñaloza :1970???Age:54 Y???Sex:Male Sudhir e:06/29/2024 Address:[address] [place] [id number] Pcp:PCP No Subjective: * Chief Complaints: * ???1. Apply for [employer] Insurance. * HPI: ???Social Service:?Action Taken?Adaptly? [employer] paper application was completed with client and faxed over to [facility]rollment [facility]. 06/29/24 gd2.? Objective: * Vitals:? Assessment: Plan: * Treatment: * Images: Billing Information: * Visit Code:? * Procedure Codes:? Care Plan Details* * Sign off status: Completed true * Provider:Amrik Peñaloza Date:?06/29/2024 Generated for Karen adame/Brian/Maheshsmitting on:?08/16/2024 10:04 AM EDT History and Physical Notes * HPI (History of Present Illness) Category Sub-Category Detail Notes Social Service Action Taken [facility] : [employer] p aper application was completed with client and faxed over to Enrollment Center. 06/29/24 gd2
== END 2024-08-16 09:42 | disposition home or self-care (01) ==
PROVIDERS: PCP Internal Medicine; Visit Provider Student in an Organized Health Care Education/Training Program
DX: M15.9 Polyosteoarthritis, unspecified (principal); Z79.1 Long term (current) use of non-steroidal anti-inflammatories (NSAID)
CPT/HCPCS: 99213

== ENCOUNTER → 2024-08-16 09:13 | Outpatient (BNVA) | payer OTHER, SELFPAY | PROVIDERS: PCP Internal Medicine; Visit Provider Student in an Organized Health Care Education/Training Program | DX: M15.9 Polyosteoarthritis, unspecified (principal); Z79.1 Long term (current) use of non-steroidal anti-inflammatories (NSAID) | CPT/HCPCS: 99212 ==

== ENCOUNTER 2024-08-16 09:49 | Outpatient (REF) | payer OTHER, SELFPAY ==
--- OUTSIDE RECORDS SUMMARY | 2024-08-16 11:15 | XMS_ITS | Clinical Summary ---
Author Organization [facility] it Address [address] [place] [address] Care Team Providers Care Real Estate Services Coordinator Name Role Phone Shira Moralez MD Primary Care Provider [phone] Immunizations Name Administration Dates Next Due Moderna [...] age to complete this topic Care Teams Real Estate Services Coordinator Relationship Specialty Start Date End Date Shira Moralez MD [address] [place] [address] [place] [address] PCP - General 07/21/21
--- OUTSIDE RECORDS SUMMARY | 2024-08-16 11:15 | XMS_ITS | Clinical Summary ---
Author Organization [facility] Address [address] [place] [address] Care Team Providers Care Mixing Place Supervisor Name Role Phone Ros Bennett Primary Care Provider [phone] Source Comments PLEASE NOTE, if this patient [...] Recombinant (2 of 2) 04/12/2023 02/16/20 23 [id number] ( season) 2023 11/18/2021, 04/23/2021, 07/09/2020, Additional [...] AG/AB, 4TH GEN NON-REAC TIVE NON-REAC TIVE [facility] Comment: HIV-1 antigen and HIV-1/HIV-2 antibodies were [...] ?? For additional information please refer to http://education.[employer]/faq/BIW979 (This link is being provided for informational/ educational purposes only.) The performance of this assay has not been clinically validated in patients less than 2 years old. Blood Blood / Unknown 08/18/2021 3 :55 PM EDT 08/18/2021 3:56 PM EDT [facility] - BLOOD DRAW Final Resu lt [facility] [address] [address], [facility] [address] [address] * ACUTE HEPATITIS PANEL W/RFLX (08/18/2021 3:55 PM EDT) HEPATITIS A IGM ANTIBODY NON-REACT JOHNNA NON-REACT JOHNNA [facility] COMMENT [facility] HEPATITIS B SURFACE ANTIGEN NON-REACT JOHNNA NON-REACT JOHNNA contrib[facility][email or web address] [facility] HEPATITIS B CORE IGM ANTIBODY NON-REACT JOHNNA NON-REACT JOHNNA [facility] HEPATITIS C ANTIBODY NON-REACT JOHNNA NON-REACT JOHNNA [facility] SIGNAL TO CUT-OFF 0.03 <1.00 [facility] Comment: HCV antibody was non-reactive. There is no laboratory evidence of HCV infection. In most cases, no further action is required. However, if recent HCV exposure is suspected, a test for HCV RNA (test code 88306) is suggested. For additional information please refer to http://[employer]PI [employer]/faq/VIQ20o9 (This link is being provided for informational/ educational purposes only.) Blood Blood / Unknown 08/18/2021 3 :55 PM EDT 08/18/2021 3:56 PM EDT Narrative [facility] - 08/19/2021 5:38 PM EDT For additional information, please refer to http://RPI ([employer]/faq/GNA782 (This link is being provided for informational/ educational purposes only.) [facility] - BLOOD DRAW Final Resu lt [facility] [address] [address], [facility] [address] [place] [address],[place] [address] * (ABNORMAL) LIPID PANEL (08/18/2021 3:55 PM EDT) CHOLESTEROL, TOTAL 159 <200 mg/dL [facility] HDL CHOLESTEROL 32(L) > OR = 40 mg/dL [facility] TRIGLYCERIDES 153(H) <150 mg/dL contrib[facility] LDL-CHOLESTEROL 102(H) 99 mg/dL (calc) [facility] Comment: Reference range: <100 Desirable range <100 mg/dL for primary prevention; ?? <70 mg/dL for patients with CHD or diabetic patients with > or = 2 CHD risk factors. LDL-C is now calculated using the Ian calculation, which is a validated novel method providing better accuracy than the Friedewald equation in the estimation of LDL-C. Benito CHAMORRO et al. NATE. 2013;310(19): 1217-0756 (http://education.O[employer]ial.[employer]ch/faq/JUZ630) CHOL/HDLC RATIO 5.0(H) <5.0 (calc) [facility] NON-HDL CHOLESTEROL 127 <130 mg/dL (calc) [facility] Comment: For patients with diabetes plus 1 major ASCVD risk factor, treating to a non-HDL-C goal of <100 mg/dL (LDL-C of <70 mg/dL) is considered a therapeutic option. Blood Blood / Unknown 08/18/2021 3 :55 PM EDT 08/18/2021 3:56 PM EDT [facility] - BLOOD DRAW Final Resu lt [facility] [address] [place] [address], [facility] [address] [place] [address],[place] [address] * COMPREHENSIVE METABOLIC PANEL (08/18/2021 3:55 PM EDT) GLUCOSE 85 65 - 99 mg/dL [facility] Comment: ?Fasting reference interval UREA NITROGEN (BUN) 23 7 - 25 mg/dL [facility] CREATININE (blood) 0.88 0.70 - 1.33 mg/dL [facility] Comment: For patients >49 years of age, the reference limit for Creatinine is approximately 13% higher for people identified as -[place]. GFR ESTIMATED 99 > OR = 60 mL/min/1 .73m2 [facility] EGFR 115 > OR = 60 mL/min/1 .73m2 [facility] BUN/CREATININE RATIO NOT APPLICABLE 6 - 22 [facility] SODIUM 138 135 - 146 mmol/L [facility] POTASSIUM 4.0 3.5 - 5.3 mmol/L [facility] CHLORIDE 105 98 - 110 mmol/L [facility] CARBON DIOXIDE 24 20 - 32 mmol/L [facility] CALCIUM 9.2 8.6 - 10.3 mg/dL [facility] PROTEIN, TOTAL 7.3 6.1 - 8.1 g/dL [facility] ALBUMIN 4.6 3.6 - 5.1 g/dL [facility] GLOBULIN 2.7 1.9 - 3.7 g/dL (calc) [facility] ALBUMIN/GLOBULIN RATIO 1.7 1.0 - 2.5 (calc) [facility] BILIRUBIN, TOTAL 0.3 0.2 - 1.2 mg/dL [facility] ALKALINE PHOSPHATASE 61 35 - 144 U/L [facility] AST 19 10 - 35 U/L [facility] ALT 16 9 - 46 U/L [facility] Blood Blood / Unknown 08/18/2021 3 :55 PM EDT 08/18/2021 3:56 PM EDT [facility] - BLOOD DRAW Edited Res ult - Final [facility] [address] [address], [facility] [address] [address] from Last 3 Months or Most Recently Relevant to Health Maintenance Insurance [facility] [employer] Member Subscriber Plan / Payer (Ef fective 2021-Present) Name:Joel Dumont Relation to Subscriber:Self Name:Joel Dumont Payer ID:[id number] Type:Indemnity Address: [address] [address] [place] Care Teams Mixing Place Supervisor Relationship Specialty Start Date End Date Ros Bennett PA [address] [place] [address] PCP - General Primary Care 09/03/23
[2024-08-16 13:23] LABS: MANUAL DIFF FLAG NO
[2024-08-16 13:53] LABS: Basophils Percent Auto 0.4 % (0-2); Eosinophils Absolute Auto 0.1 X10*3/uL (0.0-0.4); Eosinophils Percent Auto 0.7 % (0-4); Hematocrit 41.5 % (42.0-52.0); Hemoglobin 14.1 g/dl (14.0-18.0); Imm Gran Abs Auto 0.02 X10*3/uL (0.00-0.03); Imm Gran Pct Auto 0.3 % (0.0-0.4); Lymphocytes Absolute Auto 2.4 X10*3/uL (1.2-4.9); Mean Corpuscular Hemoglobin 31.3 pg (27.0-33.0); Mean Corpuscular Volume 92.2 fL (80.0-98.0); Mean Platelet Volume 10.4 fL (9.4-12.4); Monocytes Absolute Auto 0.8 X10*3/uL (0.1-1.2); Monocytes Percent Auto 10.1 % (2-11); Neutrophils Absolute Auto 4.4 x10*3/uL (2.0-8.3); Neutrophils Percent Auto 57.5 % (45-73); Platelet Count 260 X10*3/uL (160-400); Red Cell Distribution Width 13.1 % (11.0-16.0); White Blood Count 7.6 X10*3/uL (4.8-10.8)
[2024-08-16 14:06] LABS: Alanine Aminotransferase 18 U/L (0-40); Albumin Level 4.4 g/dL (3.5-5.0); Alkaline Phosphatase 70 U/L (39-117); Anion Gap 8 (12-20); Aspartate Amino Transferase 20 U/L (5-37); Bilirubin Total 0.3 mg/dL (0.0-1.0); Blood Urea Nitrogen 17 mg/dL (9-16); Calcium 9.8 mg/dL (8.4-10.2); Carbon Dioxide 30 mmol/L (22-29); Chloride 106 mmol/L (96-108); Estimated Glomerular Filt Rate > 60; Glucose Random 82 mg/dL (60-115); Potassium 4.1 mmol/L (3.3-5.1); Sodium 140 mmol/L (135-145); Total Protein 7.4 g/dL (6.5-8.0)
== END 2024-08-16 09:50 | disposition home or self-care (01) ==
LOC: HO.10HDL 09:49
PROVIDERS: Visit Provider Student in an Organized Health Care Education/Training Program
DX: M15.9 Polyosteoarthritis, unspecified (principal); Z79.1 Long term (current) use of non-steroidal anti-inflammatories (NSAID)
CPT/HCPCS: 36415; 80053; 85025